=== PATIENT | male | born 1980 | race Caucasian/White ===

== ENCOUNTER 2018-12-14 21:23 | Emergency (ER) | payer MEDICAID, OTHER ==
[2018-12-14] MEDS ORDERED: Metoprolol Succinate XL TAB* 50 MG PO ONE (21:39)
[2018-12-14 22:04] LABS: ABS Eosinophils 0.1 10^3/ul (0-0.6); ABS Lymphocytes 1.9 10^3/ul (1.0-4.8); ABS Monocytes 0.3 10^3/ul (0-0.8); Hematocrit 45 % (42-52); Hemoglobin 15.3 g/dL (14.0-18.0); Lymphocyte % 36.1 %; Mean Corpuscular HGB Conc 34 g/dL (31-36); Mean Corpuscular Hemoglobin 33 pg (27-31); Mean Corpuscular Volume 97 fL (80-94); Mean Platelet Volume 7.3 fL (7.4-10.4); Platelet Count 204 10^3/uL (150-450); Red Blood Count 4.66 10^6 /uL (4.18-5.48); Red Cell Distribution Width 14 % (10-15); White Blood Count 5.3 10^3/uL (3.5-10.8)
--- NOTE | 2018-12-14 22:06 | ED ---
Substance Abuse/Use - HPI Summary HPI Summary: A 38 y/o M presents to ED requesting ETOH detox. His last drink was immediately [employer], it was a beer. He states when he detoxes his BP increases and becomes tremulous immediately. He is not in withdrawal, but is worried about it. Patient has detoxed and gone to rehab before, last time was approx one year ago , he went to a place in [place]. He drinks as soon as he wakes up. He's had issues with his employment and with his due to his drinking. He is a smoker. Vitals at bedside: BP: 173/124. Patient is afebrile in ED. He does not have a PCP and recently moved to [place]. - History Of Current Complaint Chief Complaint: EDDetoxRequest Stated Complaint: DETOX PER PTE Time Seen by Provider: 12/14/18 21:56 Hx Obtained From: Patient Ingestion History: Type/Name Of Drug - ETOH, beer Overdose Characteristics: Oral Timing Of Abuse: Daily Severity Initially: Moderate Severity Currently: Moderate Aggravating Factor(s): Recent Stress Associated Signs And Symptoms: Other: - neg: fever - Allergies/Home Medications Allergies/Adverse Reactions: Allergies Allergy/AdvReac Type Severity Reaction Status Date / Time No Known Allergies Allergy Verified 12/14/18 21:30 PMH/Surg Hx/FS Hx/Imm Hx Previously Healthy: No Cardiovascular History: Reports: Hx Hypertension Neurological History: Denies: Hx Dementia, Hx Seizures Psychiatric History: Reports: Hx Substance Abuse - alcoholic - Surgical History Surgery Procedure, Year, and Place: Denies Infectious Disease History: No Infectious Disease History: Denies: Traveled Outside the in Last 30 Days - Family History Known Family History: Positive: Other - Reviewed and non-contributory - Social History Occupation: Unemployed Lives: With Family Alcohol Use: Daily Hx Substance Use: No Substance Use Type: Reports: None Hx Tobacco Use: No Smoking Status (MU): Never Smoked Tobacco Review of Systems Negative: Fever Cardiovascular: Other - pos: elevated BP All Other Systems Reviewed And Are Negative: Yes Physical Exam - Summary Physical Exam Summary: Appearance: Well appearing, no pain distress, mildly agitated, mildly smells of ETOH Skin: warm, dry, reflects adequate perfusion Head/face: normal Eyes: EOMI, MICHAEL ENT: mucous membranes moist Neck: supple, non-tender Respiratory: CTA, breath sounds present Cardiovascular: RRR, pulses symmetrical Abdomen: non-tender, soft Bowel Sounds: present Musculoskeletal: normal, strength/ROM intact, no tremors Neuro: normal, sensory motor intact, A&Ox3 Triage Information Reviewed: Yes Vital Signs On Initial Exam: Initial Vitals Temp Pulse Resp BP Pulse Ox 97.7 F 94 16 173/128 97 12/14/18 21:25 12/14/18 21:25 12/14/18 21:25 12/14/18 21:25 12/14/18 21:25 Vital Signs Reviewed: Yes Diagnostics - Vital Signs Vital Signs Temp Pulse Resp BP Pulse Ox 12/14/18 21:59 173/124 12/14/18 21:45 91 181/122 96 12/14/18 21:44 91 93 12/14/18 21:25 97.7 F 94 16 173/128 97 - Laboratory Result Diagrams: 12/14/18 21:50 12/14/18 21:50 Lab Statement: Any lab studies that have been ordered have been reviewed, and results considered in the medical decision making process. Course/Dx - Course Course Of Treatment: Nurse's notes reviewed. Patient is a chronic alcoholic with functional capacity as evidenced by clear speech, steady gait and normal ability to reason despite an alcohol level over 400. He is just looking for referral and has come with a safe ride. He wanted his blood pressure controlled which we restarted his medication and prescribed the same. He will follow-up at [facility] at 10 AM in the morning. He is instructed not to drive , use machinery and to stay with a responsible adult. - Diagnoses Differential Diagnosis/HQI/PQRI: Positive: Alcohol Abuse, Depression, Drug Abuse Provider Diagnoses: Alcoholism, Hypertension Discharge - Sign-Out/Discharge Documenting (check all that apply): Patient Departure - D/C Patient Received Moderate/Deep Sedation with Procedure: No - Discharge Plan Condition: Stable Disposition: HOME Prescriptions: Metoprolol Succinate XL TAB* [Toprol XL TAB*] 50 mg PO BEDTIME #30 tab.xl Patient Education Materials: Alcohol Dependence (ED) Referrals: [facility] [Outside] [facility] [Outside] Additional Instructions: Do not drive. Do not drink any more alcohol. Go to [facility] between the hours of 10 AM and 6 PM tomorrow as discussed. They can arrange detox/ rehabilitation and services to help with your drinking. Stay with a responsible adult. Return if worse, new symptoms or other concerns. - Billing Disposition and Condition Condition: STABLE Disposition: Home - Attestation Statements Document Initiated by Yovani: Yes Documenting Scribe: Shaina Reyes Provider For Whom Yovani is Documenting (Include Credential): Dr. Thomas Simms MD Scribe Attestation: IShaina, scribed for Dr. Thomas Simms MD on 12/15/18 at 0111. Scribe Documentation Reviewed: Yes Provider Attestation: The documentation as recorded by the Shaina pierce accurately reflects the service I personally performed and the decisions made by me, Dr. Thomas Simms MD Status of Scribe Document: Viewed
[2018-12-14 22:13] LABS: Albumin/Globulin Ratio 1.5 (1-3); BUN/Creatinine Ratio 7.9 (8-20); Calcium 9.2 mg/dL (8.6-10.3); EGFR African American 115.8 (>60); EGFR Non-African American 95.7 (>60); Globulin 3.3 g/dL (2-4); Potassium 3.7 mmol/L (3.5-5.0); Total Bilirubin 0.3 mg/dL (0.2-1.0); Total Protein 8.3 g/dL (6.4-8.9)
[2018-12-14] MEDS ORDERED: LORazepam TAB(*) 1 MG PO ONE (22:14)
[2018-12-14 22:52] VITALS: BP 162/112
== END 2018-12-14 22:51 | disposition home or self-care (01) ==
LOC: ED 21:23
DX: F10.20 Alcohol dependence, uncomplicated (principal); I10 Essential (primary) hypertension; F17.290 Nicotine dependence, other tobacco product, uncomplicated
CPT/HCPCS: 36415; 80053; 80320; 85025; 99283; A9270-GY; G0480